=== PATIENT | female | born 1995 | race Caucasian/White ===

== ENCOUNTER 2018-02-04 07:40 | Emergency (ER) | payer OTHER ==
[2018-02-04 07:48] VITALS: BP 93/56
--- NOTE | 2018-02-04 08:09 | UC ---
Skin Complaint HPI - HPI Summary HPI Summary: Patient is a 22-year-old female with a five-day history of an expanding bull's- eye rash on her right calf. Eyes any fever or chills. Had no nausea vomiting. Denies any joint or muscle aches. She does not recall a tick bite. She feels fatigued. - History of Current Complaint Chief Complaint: UCSkin Time Seen by Provider: 02/04/18 07:52 Stated Complaint: R LEG BUG BITE Hx Obtained From: Patient Hx Last Menstrual Period: 02/02/18 Onset/Duration: Gradual Onset Timing: Constant Onset Severity: Mild Pain Intensity: 4 - ADAMS Pain Scale Used: 0-10 Numeric Location: Other - right calf Character: Redness, Raised Associated Signs & Symptoms: Positive: Rash - Allergy/Home Medications Allergies/Adverse Reactions: Allergies Allergy/AdvReac Type Severity Reaction Status Date / Time Penicillins Allergy Rash Verified 02/04/18 07:49 Review of Systems Constitutional: Fatigue Skin: Rash Eyes: Negative ENT: Negative Respiratory: Negative Cardiovascular: Negative Gastrointestinal: Negative Genitourinary: Negative Motor: Negative Neurovascular: Negative Musculoskeletal: Negative Neurological: Negative Psychological: Negative Is Patient Immunocompromised?: No All Other Systems Reviewed And Are Negative: Yes PMH/Surg Hx/FS Hx/Imm Hx Previously Healthy: Yes - Surgical History Surgical History: None - Family History Known Family History: Positive: Cardiac Disease, Hypertension, Diabetes - Social History Alcohol Use: None Substance Use Type: None Smoking Status (MU): Never Smoked Tobacco Physical Exam Triage Information Reviewed: Yes Appearance: Well-Appearing, No Pain Distress, Well-Nourished Vital Signs: Initial Vital Signs Temp 98.6 F 02/04/18 07:45 Pulse 105 02/04/18 07:45 Resp 16 02/04/18 07:45 BP 93/56 02/04/18 07:45 Pulse Ox 99 02/04/18 07:45 Vital Signs Reviewed: Yes Eyes: Positive: Conjunctiva Clear ENT: Positive: Hearing grossly normal. Negative: Nasal congestion, Nasal drainage, Trismus, Muffled voice, Hoarse voice Neck: Positive: Supple, Nontender Respiratory: Positive: Lungs clear, Normal breath sounds, No respiratory distress, No accessory muscle use Cardiovascular: Positive: RRR, No Murmur Musculoskeletal: Positive: ROM Intact, No Edema Neurological: Positive: Alert Psychological Exam: Normal Skin: Positive: rashes - 9.5 x 10 cm rash consistent with erythema migrans. Course/Dx - Diagnoses Provider Diagnoses: LYME DISEASE Discharge - Sign-Out/Discharge Documenting (check all that apply): Discharge/Admit/Transfer - Discharge Plan Condition: Stable Disposition: HOME Prescriptions: DOXYcycline CAP(*) [DOXYcycline 100MG CAP(*)] 100 mg PO BID #[id number] cap Patient Education Materials: Lyme Disease (ED) Referrals: Maris Yepez DO [Primary Care Provider] - 2 Weeks - Billing Disposition and Condition Condition: STABLE Disposition: Home
== END 2018-02-04 08:12 | disposition home or self-care (01) ==
LOC: UCEAST 07:40
DX: A69.20 Lyme disease, unspecified (principal); Z88.0 Allergy status to penicillin
CPT/HCPCS: 99212; G0463